=== PATIENT | male | born 1965 | race Caucasian/White ===

== ENCOUNTER 2016-11-16 11:25 | Outpatient (CLI) | payer BC ==
[2016-11-16] MEDS ORDERED: DOBUTamine 100 MG in D5W 92 ML IV SCH (13:00)
--- NOTE | 2016-11-17 11:28 | Treadmill Report ---
DOBUTAMINE ECHOCARDIOGRAM STRESS TEST PROCEDURE: The patient was administered with dobutamine in incremental doses of 5, 10, 20, and 30 mcg per kilogram per minute. Heart rate and blood pressure were monitored during the duration of the infusion. The patient was on continuous ECG monitoring. Baseline ECG was sinus rhythm. With dobutamine, there were no ST changes of ischemia. No significant dysrhythmias were noted. A 2D echocardiogram was performed at baseline and at peak dobutamine infusion. Images were taken in parasternal long, parasternal short, and 4 chamber views. Baseline echocardiogram demonstrated normal left ventricular systolic function with ejection fraction 55%. With dobutamine, there was an increase in left ventricular contractility, with systolic ejection fraction approaching 65-70% at peak dobutamine infusion. There was concentric thickening of the left ventricular wall. There was no left ventricular dilatation. CONCLUSION: 1. No chest pain with dobutamine. 2. No ST changes of ischemia. 3. No significant dysrhythmias. 4. Normal increase in left ventricular systolic function, no left ventricular dilatation, no regional wall motion abnormalities detected during dobutamine infusion. This is a negative dobutamine echocardiography stress test. Clinical correlation is recommended. JOB# [id number] CA/NTS
== END 2016-11-16 11:26 | disposition home or self-care (01) ==
LOC: CARD 11:25
DX: R07.9 Chest pain, unspecified (principal)
CPT/HCPCS: 93017; 93320; 93325; 93350; J1250

== ENCOUNTER 2017-04-13 12:36 | Outpatient (CLI) | payer BC ==
--- NOTE | 2017-04-13 13:52 | XRay Report ---
Right knee 3 views. History: Knee pain. Findings: There is marked narrowing of the medial joint space. Bony mineralization is normal. No significant soft tissue abnormalities are seen. Impression: Osteoarthritis.
== END 2017-04-13 12:37 | disposition home or self-care (01) ==
LOC: SPVIMAG 12:36
DX: M17.11 Unilateral primary osteoarthritis, right knee (principal); I10 Essential (primary) hypertension; E11.9 Type 2 diabetes mellitus without complications; F41.9 Anxiety disorder, unspecified; F17.200 Nicotine dependence, unspecified, uncomplicated